=== PATIENT | male | born 1990 | race Caucasian/White ===

== ENCOUNTER 2021-05-10 14:14 | Emergency (ER) | payer SELFPAY ==
[2021-05-10] MEDS ORDERED: Sodium Chloride 0.9% 10 ML Syringe FLUSH PRN (14:36)
[2021-05-10] MEDS ORDERED: LORazepam 2 MG/ML SDV IVPUSH ONE (14:39)
[2021-05-10] MEDS ORDERED: LORazepam 1 MG Tab PO ONE (16:20)
== END 2021-05-10 16:35 | disposition home or self-care (01) ==
LOC: JD.ED 14:14
DX: F41.9 Anxiety disorder, unspecified (principal); K21.9 Gastro-esophageal reflux disease without esophagitis; R00.0 Tachycardia, unspecified; Z79.899 Other long term (current) drug therapy
CPT/HCPCS: 36415; 71045; 80053; 83735; 84443; 84484; 85025; 85610; 85730; 93005; 96374; 99284; A9270; J2060

== ENCOUNTER 2024-12-22 11:42 | Emergency (ER) | payer OTHER | END 2024-12-22 13:45 | disposition home or self-care (01) | LOC: JD.ED 11:42 | DX: S99.911A Unspecified injury of right ankle, initial encounter (principal); K21.9 Gastro-esophageal reflux disease without esophagitis; F17.210 Nicotine dependence, cigarettes, uncomplicated; Z88.8 Allergy status to other drugs, medicaments and biological substances; Z86.16 Personal history of COVID-19; X50.1XXA Overexertion from prolonged static or awkward postures, initial encounter; Y93.89 Activity, other specified | CPT/HCPCS: 73590-26-RT; 73590-RT; 73610-26-RT; 73610-RT; 73620-26-RT; 73620-RT; 99283 ==